=== PATIENT | male | born 1960 | race Caucasian/White ===

== ENCOUNTER 2017-05-08 07:40 | Day surgery (SDC) | payer OTHER ==
[~2017-05-08] VITALS: Ht 177.8 cm; Wt 89.4 kg
[~2017-05-08 07:40] MED LIST: ADV250INH INH; CYCL10TA PO; CYMB1CAP5 PO; GABA600T PO; LIPI20TA PO; OXYC1TAB23 PO; PROAAER10 INH; STOO100C PO
[2017-05-08] MEDS ORDERED: NS 1,000 ML IV ONE (07:45)
[2017-05-08] MEDS ORDERED: LIDOCAINE 2% INJ 100 MG/5 ML SDV (FOR ANES.) As Ordered ONE (09:40)
[2017-05-08] MEDS ORDERED: PROPOFOL 500 MG/50 ML VIAL As Ordered ONE (09:40)
--- NOTE | 2017-05-08 09:53 | ROOR ---
Patient Name: Karson Sierra Procedure Date: 05/08/2017 9:36 AM Date of : 1960 Age: 57 Room: [facility] Gender: Male Note Status: Finalized Procedure: Upper Endoscopy + Biopsies Indications: Follow-up of Pierce's esophagus Providers: Yovani Oliveira MD Referring MD: JUNE WATKINS MD Requesting Provider: Medicines: Monitored Anesthesia Care Complications: No immediate complications. Procedure: Pre-Anesthesia Assessment: - The heart rate, respiratory rate, oxygen saturations, blood pressure, adequacy of pulmonary ventilation, and response to care were monitored throughout the procedure. The Endoscope was introduced through the mouth, and advanced to the second part of duodenum. The upper GI endoscopy was accomplished without difficulty. The patient tolerated the procedure well. Findings: The Z-line was irregular and was found 35 cm from the incisors. Multiple biopsies were obtained with cold forceps for evaluation to rule out Pierce's Esophagus randomly at the gastroesophageal junction. Evidence of a Rohit fundoplication was found in the distal esophagus. The wrap appeared intact. This was traversed. No other significant abnormalities were identified in a careful examination of the stomach. The exam of the duodenum was otherwise normal. Impression: - Z-line irregular, 35 cm from the incisors. - A Rohit fundoplication was found. The wrap appears intact. - Multiple biopsies were obtained at the gastroesophageal junction. - The examination was otherwise normal. Recommendation: - Patient has a contact number available for emergencies. The signs and symptoms of potential delayed complications were discussed with the patient. Return to normal activities tomorrow. Written discharge instructions were provided to the patient. - High fiber diet. - Discharge patient to home. - Follow an antireflux regimen. - Continue present medications. - Await pathology results. - Telephone GI clinic for pathology results in 1 week. - Check Portal Online for Path Results.([email or web address]) - Return to referring physician. - The findings and recommendations were discussed with the patient's family. Yovani Oliveira MD Yovani Oliveira MD 05/08/2017 9:52:59 AM This report has been signed electronically. Number of Addenda: 0 Note Initiated On: 05/08/2017 9:36 AM Estimated Blood Loss: Estimated blood loss: none.
--- NOTE | 2017-05-08 10:10 | ROOR ---
Patient Name: Karson Sierra Procedure Date: 05/08/2017 9:36 AM Date of : 1960 Age: 57 Room: [facility] Gender: Male Note Status: Finalized Procedure: Total Colonoscopy to Cecum Indications: Screening for colorectal malignant neoplasm Providers: Yovani Oliveira MD Referring MD: JUNE WATKINS MD Requesting Provider: Medicines: Monitored Anesthesia Care Complications: No immediate complications. Procedure: Pre-Anesthesia Assessment: - The heart rate, respiratory rate, oxygen saturations, blood pressure, adequacy of pulmonary ventilation, and response to care were monitored throughout the procedure. The Colonoscope was introduced through the anus and advanced to the cecum, identified by appendiceal orifice and ileocecal valve. The colonoscopy was performed without difficulty. The patient tolerated the procedure well. The quality of the bowel preparation was fair. Findings: The perianal and digital rectal examinations were normal. Non-bleeding internal hemorrhoids were found during retroflexion. The hemorrhoids were small and Grade I (internal hemorrhoids that do not prolapse). No other significant abnormalities were identified in a careful examination of the remainder of the colon. The exam was otherwise without abnormality on direct and retroflexion views. Impression: - Non-bleeding internal hemorrhoids. - The examination was otherwise normal on direct and retroflexion views. - No specimens collected. - The exam was otherwise normal to the cecum. Recommendation: - Patient has a contact number available for emergencies. The signs and symptoms of potential delayed complications were discussed with the patient. Return to normal activities tomorrow. Written discharge instructions were provided to the patient. - Discharge patient to home. - Continue present medications. - Repeat colonoscopy in 10 years for screening purposes. - Return to referring physician. - The findings and recommendations were discussed with the patient's family. Yovani Oliveira MD Yovani Oliveira MD 05/08/2017 10:09:50 AM This report has been signed electronically. Number of Addenda: 0 Note Initiated On: 05/08/2017 9:36 AM Estimated Blood Loss: Estimated blood loss: none.
[2017-05-08 10:30] VITALS: BP 111/80
== END 2017-05-08 10:45 | disposition home or self-care (01) ==
LOC: M OPP 07:40
PROVIDERS: ATTEND Internal Medicine Gastroenterology
DX: Z12.11 Encounter for screening for malignant neoplasm of colon (principal); K64.0 First degree hemorrhoids; K22.70 Barrett's esophagus without dysplasia; K22.8 Other specified diseases of esophagus; Z98.890 Other specified postprocedural states; R13.10 Dysphagia, unspecified; K21.9 Gastro-esophageal reflux disease without esophagitis; K59.00 Constipation, unspecified; M19.90 Unspecified osteoarthritis, unspecified site; M54.9 Dorsalgia, unspecified; M25.60 Stiffness of unspecified joint, not elsewhere classified; F32.9 Major depressive disorder, single episode, unspecified; G62.9 Polyneuropathy, unspecified; J44.9 Chronic obstructive pulmonary disease, unspecified; R06.02 Shortness of breath; Z98.1 Arthrodesis status; F17.210 Nicotine dependence, cigarettes, uncomplicated; Z79.899 Other long term (current) drug therapy
CPT/HCPCS: 43239; 88305; G0121

== ENCOUNTER → 2017-06-30 | Outpatient (CLI) | payer MEDICARE, OTHER | LOC: M RAD 09:46 | DX: Z12.2 Encounter for screening for malignant neoplasm of respiratory organs (principal); J44.1 Chronic obstructive pulmonary disease with (acute) exacerbation; F17.200 Nicotine dependence, unspecified, uncomplicated | CPT/HCPCS: G0297 ==

== ENCOUNTER → 2018-09-26 | Outpatient (CLI) | payer MEDICARE, OTHER ==
[~2018-09-26] MED LIST changes: -GABA600T PO; +GABA600T4 PO
--- NOTE | 2018-09-26 11:52 | REP ---
Low-dose lung screening chest CT: Comparison is 06/30/2017. On the comparison study there was an 8 mm ground-glass nodule in the superior segment of the right lower lobe. This nodule is no longer present on the current study. It may represent a small focal zone of atelectasis previously. The calcified granuloma posteriorly in the right upper lobe is unchanged. There is a fibro linear parenchymal scar adjacent to the granuloma, unchanged. There are no other nodules or masses. There are no infiltrates or pleural effusions. Impression: The previous right lower lobe ground-glass nodule has resolved, likely transient atelectasis. Category one low-dose lung screening CT. The probability of malignancy is less than 1%. Depending on risk factors, annual low-dose lung screening chest CT is recommended for follow up. Electronically Signed by Surinder Sahni MD 09/26/2018 11:44 A
== END ==
LOC: M RAD 10:29
PROVIDERS: ATTEND Family Medicine
DX: Z12.2 Encounter for screening for malignant neoplasm of respiratory organs (principal); J44.9 Chronic obstructive pulmonary disease, unspecified; F17.210 Nicotine dependence, cigarettes, uncomplicated; J84.10 Pulmonary fibrosis, unspecified

== ENCOUNTER → 2019-04-26 | Outpatient (REF) | payer MEDICARE, OTHER ==
[~2019-04-26] MED LIST changes: +MM S100C PO; -STOO100C PO
[2019-04-26 17:28] LABS: HEMATOCRIT 46.8 % (42.0-52.0); HEMOGLOBIN 15.6 g/dl (13.5-17.5); MEAN CORPUSCULAR HGB CONC 33.3 g/dl (32.0-36.5); MEAN CORPUSCULAR VOLUME 108.1 fl (80.0-96.0); PLATELET COUNT, AUTOMATED 279 10^3/uL (150-450); RED BLOOD COUNT 4.33 10^6/uL (4.30-6.10); WHITE BLOOD COUNT 9.5 10^3/uL (4.0-10.0)
[2019-04-26 17:36] LABS: ALBUMIN 3.6 GM/DL (3.2-5.2); ALT/SGPT 35 U/L (12-78); BILIRUBIN,TOTAL 0.4 MG/DL (0.2-1.0); BLOOD UREA NITROGEN 16 MG/DL (7-18); CALCIUM LEVEL 8.7 MG/DL (8.8-10.2); CARBON DIOXIDE LEVEL 29 MEQ/L (21-32); CHLORIDE LEVEL 106 MEQ/L (98-107); CREATININE FOR GFR 0.99 MG/DL (0.70-1.30); GLOMERULAR FILTRATION RATE > 60.0 (>49); GLUCOSE, FASTING 104 MG/DL (70-100); POTASSIUM SERUM 4.2 MEQ/L (3.5-5.1); SODIUM LEVEL 140 MEQ/L (136-145)
== END ==
LOC: M LAB REF 16:17
PROVIDERS: ATTEND Surgery
DX: T14.8XXA Other injury of unspecified body region, initial encounter (principal); I87.311 Chronic venous hypertension (idiopathic) with ulcer of right lower extremity
CPT/HCPCS: 11042; 80053; 83036; 85027; G0463

== ENCOUNTER → 2019-05-09 | Outpatient (CLI) | payer MEDICARE, OTHER ==
[~2019-05-09] MED LIST changes: +ISOVUE-370 76% 100ML VIAL (Q9967) As Ordered ONE
--- NOTE | 2019-05-09 11:05 | REP ---
CT angiography of the abdomen, pelvis and bilateral lower extremity runoff arteries with IV contrast: History: Chronic venous hypertension with ulcer right lower extremity. CT contrast dose: 100 mL of intravenous Isovue 370. Technique: Helical scanning is acquired. Coronal and sagittal MPR images are generated. Maximal intensity projection images are generated and surface rendered 3-D images are generated and viewed in a rotational format. CT angiographic findings: The suprarenal abdominal aorta is unremarkable. Celiac and superior mesenteric axes are patent. The inferior mesenteric artery origin is unremarkable as well. Singular, non-stenotic bilateral renal arteries are observed. The left kidney shows significant atrophy. The infrarenal abdominal aorta shows mild atherosclerotic and calcific plaquing. No stenosis is seen. There is some spray artifact from fusion hardware in the lumbar spine. The common iliac artery calcification is noted bilaterally. There is a high-grade focal stenosis of the right common iliac artery at its bifurcation. No high-grade stenosis is noted on the left. The internal iliac artery is patent on the right. There is internal iliac artery occlusion on the left. The distal internal iliac artery on the left is reconstituted. The right external iliac artery is somewhat smaller than its left-sided counterpart. There is a high-grade focal stenosis at the origin of the proximal superficial femoral artery on the right approximately 90%. There is minimal plaquing in the mid SFAs bilaterally but no other focal stenosis is seen. Popliteal arteries are of good caliber. Three-vessel calf runoff is observed bilaterally to the distal calf. Impression: 1. High-grade focal stenosis of the distal common iliac artery on the right, approximately 80%. 2. High-grade focal stenosis of the proximal superficial femoral artery origin on the right, approximate 90%. 3. Left internal iliac artery occlusion. 4. Left renal atrophy. 5. Status post lumbosacral spine fusion. Electronically Signed by Raul Hua MD 05/09/2019 11:34 A
== END ==
LOC: M RAD 08:12
PROVIDERS: ATTEND Surgery
DX: I70.203 Unspecified atherosclerosis of native arteries of extremities, bilateral legs (principal); M43.27 Fusion of spine, lumbosacral region; N26.1 Atrophy of kidney (terminal); I87.311 Chronic venous hypertension (idiopathic) with ulcer of right lower extremity
CPT/HCPCS: 75635; Q9967

== ENCOUNTER → 2019-05-27 | Outpatient (CLI) | payer MEDICARE, OTHER ==
[~2019-05-27] MED LIST changes: -ISOVUE-370 76% 100ML VIAL (Q9967) As Ordered ONE
[2019-05-27 18:58] LABS: HEMATOCRIT 47.9 % (42.0-52.0); HEMOGLOBIN 15.7 g/dl (13.5-17.5); MEAN CORPUSCULAR HGB CONC 32.8 g/dl (32.0-36.5); MEAN CORPUSCULAR VOLUME 103.7 fl (80.0-96.0); PLATELET COUNT, AUTOMATED 327 10^3/uL (150-450); RED BLOOD COUNT 4.62 10^6/uL (4.30-6.10); WHITE BLOOD COUNT 9.8 10^3/uL (4.0-10.0)
[2019-05-27 19:15] LABS: BLOOD UREA NITROGEN 11 MG/DL (7-18); CARBON DIOXIDE LEVEL 30 MEQ/L (21-32); CHLORIDE LEVEL 103 MEQ/L (98-107); GLOMERULAR FILTRATION RATE > 60.0 (>49); GLUCOSE, FASTING 95 MG/DL (70-100); POTASSIUM SERUM 4.1 MEQ/L (3.5-5.1); SODIUM LEVEL 140 MEQ/L (136-145)
== END ==
LOC: M LAB 17:24
PROVIDERS: ATTEND Surgery Vascular Surgery
DX: I70.213 Atherosclerosis of native arteries of extremities with intermittent claudication, bilateral legs (principal)

== ENCOUNTER → 2019-06-13 | Outpatient (CLI) | payer MEDICARE, OTHER ==
[~2019-06-13] MED LIST changes: +ACETAMINOPHEN TAB 650MG DOSE (2X325MG) PO SCH; +CLOP75TA2 PO; +CLOPIDOGREL 75 MG TAB As Ordered ONE; +CLOPIDOGREL 75 MG TAB PO ONE; +HEPARIN 1,000 UNITS/ML 10ML VIAL (FOR RADIOLOGY& DIALYSIS ONLY) As Ordered ONE; +ISOVUE-300 61% 50ML VIAL (Q9967) As Ordered ONE; +LIDOCAINE 1% MDV 20ML VIAL As Ordered ONE; +MIDAZOLAM INJ 2 MG/2 ML VIAL (J2250) As Ordered ONE; +NS 1,000 ML IV SCH; +fentaNYL 100 MCG/2 ML INJECTION (J3010) As Ordered ONE
--- NOTE | 2019-06-13 09:47 | ROOPDOC ---
[facility] Report Of Operation Report of Operation DATE OF PROCEDURE: 06/13/19 PREPROCEDURE DIAGNOSES: Atherosclerosis the [place]qualmie vessels claudication and nonhealing wounds right lower extremity POSTPROCEDURE DIAGNOSES: Same PROCEDURE: 1. Ultrasound-guided access left common femoral artery 2. Aortoiliofemoral arteriogram, right lower extremity arteriogram with runoff from selection of right common femoral and superficial femoral arteries 3. Angioplasty right common iliac artery with 8 x 40 Clearwater balloon 4. Angioplasty right superficial femoral artery with 5 x 40 Clearwater balloon 5. Stenting proximal right superficial femoral artery with 7 x 40 Innova stent and 7 x 40 drug-eluting stent 6. Stenting distal common iliac artery and proximal external iliac artery with 10 x 57 express balloon expandable stent 7. Completion arteriograms 8. Mynx closure left common femoral artery SURGEON: Tamia Moore MD ANESTHESIA: Local anesthesia 7 mL lidocaine. Moderate intravenous conscious sedation was supervised by Dr. Moore. The patient was independent only monitored by a registered nurse assigned to the Department of radiology using automated blood pressure, EKG, and pulse oximetry. The detailed sedation record is permanently stored in the hospital information system. The following is the brief sedation record: Start time 07:47, stop time 09:22, Versed 1 mg IV, fentanyl 50 g IV, heparin 5000 units IV. CONTRAST: 79 mL Isovue-300 INDICATION FOR PROCEDURE: This is a very pleasant 59-year-old patient with atherosclerosis the [place]qualmie vessels and right lower extremity claudication and nonhealing wound of the right foot. Risks benefits and alternatives to an arteriogram and potential intervention were explained to the patient knee was ag reeable to proceed. Informed consent was obtained. INTERPRETATION: 1. The aorta is widely patent, and there is widely patent inflow through the left common iliac, hypogastric common external iliac artery. On the right, the common iliac artery is ectatic but patent proximally, but then just before the bifurcation into the hypogastric in the external iliac artery there is an approximately 95% stenosis, with mild poststenotic dilatation in the external iliac artery. The runoff through the rest of the external iliac artery into the common femoral arteries widely patent. 2. The right common femoral artery and profunda are widely patent but there is a near total occlusion at the origin of the SFA with trickle flow. There is some poststenotic dilatation in the rest of the superficial femoral artery throughout the thigh is widely patent and runs often to widely patent popliteal artery with 3 vessel runoff to the foot. 3. After angioplasty of the right common iliac artery, there was almost no improvement in flow. After stenting with a 10 x 57 express stent there was widely patent flow with still some mild noted ectasia proximal to the stent but not flow-limiting. 4. After angioplasty of the proximal right superficial femoral artery, there was minimal improvement. After the initial 7 x 40 Innova stent we still had a significant stenosis. We place a stent slightly distal to try to prevent coveri ng any of the origin of the profunda, but we did in fact have to place a more proximal stent, and we chose a drug-eluting stent to help maintain patency. We did partially cover the origin of the profunda, but there was still widely patent inflow through to the profunda. After post dilation, there was a marked improvement in flow through the right SFA origin with less than 20% residual stenosis. 5. Completion arteriogram showed that there was intact distal flow with no embolization. We noted no extravasation or dissections. REPORT OF OPERATION: Patient was brought to the angiographic suite in stable condition. His bilateral groins were prepped and draped in a sterile fashion. A timeout was performed. Local anesthesia was administered to the skin and subcutaneous tissue over the left common femoral artery. A microneedle was used to access the artery under ultrasound guidance and a wire was passed through this access into the central system. The needle was removed and a micro-sheath was placed. Through this access the Glidewire was advanced into the aorta under fluoroscopic guidance and the sheath was exchanged for 6 Andorran sheath and f lushed with saline. We then performed and aortoiliofemoral arteriogram with an Omni flushed catheter, please interpretation above. We went up and over the bifurcation with Omni flushed catheter and the Glidewire. It took a bit of time to cross through the severe stenosis in the common iliac artery, but we were eventually able to navigate through. It then took another 15 minutes to navigate into the origin of the superficial femoral artery, but we were eventually able to navigate the wire to the distal SFA. Over the wire, we angioplasty the stenosis in the common iliac artery with an 8 x 40 Clearwater balloon, and then we exchanged the balloon for a 5 x 40 balloon angioplasty across the origin of the SFA. Arteriogram showed minimal improvement in either area. Next, we deployed a 7 x 40 Innova stent, and noted still some stenosis proximal to the stent that we could only treat by covering part of the origin of the profunda. It was flow- limiting, so we selected a 7 x 40 drug-eluting stent and deployed this and post dilated with the 8 x 40 Clearwater balloon. Following this there was widely patent flow through the SFA. We then exchanged for 6 Andorran sheath over the Glidewire for a 7 Andorran sheath and flushed the sheath with saline, and then selected a 10 x 57 stent to deployed across the common iliac artery and proximal external iliac artery. Following this, there was still a little ectasia proximal to the stent but widely patent flow with no flow limitation. Distal runoff was intact and no embolization extravasation or dissections were noted. Mynx closure device was deployed in the left common femoral artery with good hemostasis. Pressure was held for 10 minutes and the patient was taken to recovery in stable condition. He tolerated the sedation and the procedure well. There were no complications. ESTIMATED BLOOD LOSS: Approximately 5 mL. COMPLICATIONS: None. PLAN: The patient can resume all home medications and he will need to be on Plavix for 60 days process procedure due to stent placement. He should continue to try to quit smoking. We will see him back in a week to check his left groin access site and his perfusion. TAMIA MOORE MD Jun 13, 2019 09:47
[2019-06-13 13:30] VITALS: BP 138/74
== END ==
LOC: M IRPRO 06:30
PROVIDERS: ATTEND Surgery Vascular Surgery
DX: I70.211 Atherosclerosis of native arteries of extremities with intermittent claudication, right leg (principal); I70.239 Atherosclerosis of native arteries of right leg with ulceration of unspecified site
CPT/HCPCS: 37221; 37226; 75710; 99152; 99153; C1725; C1760; C1769; C1874; C1876; C1887; C1894; J2250; J3010; Q9967

== ENCOUNTER → 2019-07-24 | Outpatient (CLI) | payer MEDICARE, OTHER ==
[~2019-07-24] MED LIST changes: -ACETAMINOPHEN TAB 650MG DOSE (2X325MG) PO SCH; -CLOPIDOGREL 75 MG TAB As Ordered ONE; -CLOPIDOGREL 75 MG TAB PO ONE; -HEPARIN 1,000 UNITS/ML 10ML VIAL (FOR RADIOLOGY& DIALYSIS ONLY) As Ordered ONE; -ISOVUE-300 61% 50ML VIAL (Q9967) As Ordered ONE; -LIDOCAINE 1% MDV 20ML VIAL As Ordered ONE; -MIDAZOLAM INJ 2 MG/2 ML VIAL (J2250) As Ordered ONE; -NS 1,000 ML IV SCH; -fentaNYL 100 MCG/2 ML INJECTION (J3010) As Ordered ONE
--- NOTE | 2019-07-24 10:57 | REP ---
Bilateral lower extremity Doppler arterial ultrasound: Right lower extremity: Brachial peak systole: 150 mmHg. Dorsalis pedis peak systole: 145 mmHg. ENGINE OILER peak systole: 160 mmHg FEDERICA: 1.06 Peak Systolic Phasicity Velocity FOREIGN EXCHANGE POSITION CLERK 106 triphasic Profunda 76 biphasic SFA prox 88/93 triphasic SFA mid 87 triphasic SFA dist 61 bi-triphasic Pop 46 triphasic JUANITO prox 48 biphasic Tib/P tr 57 triphasic ENGINE OILER pr 58 triphasic ENGINE OILER dst 36 biphasic JUANITO dst 55 triphasic t The left lower extremity: Brachial peak systole: 150 mmHg. Dorsalis pedis peak systole: 145 mmHg. ENGINE OILER peak systole: 130 mmHg. FEDERICA: 0.97 Peak Systolic Phasicity Velocity FOREIGN EXCHANGE POSITION CLERK 70 C triphasic Profunda 55 biphasic SFA prox 68 triphasic SFA mid 61 triphasic SFA dist 35 biphasic Pop the 44 triphasic JUANITO prox 44 triphasic Tib/P tr 34 biphasic ENGINE OILER pr 64 triphasic ENGINE OILER dst 62 triphasic JUANITO dst 85 triphasic No significant stenosis is identified on the right or the left. There is a patent stent in the right proximal SFA. The flow in the left FOREIGN EXCHANGE POSITION CLERK is mildly decreased, however, the waveform is triphasic. Electronically Signed by Surinder Sahni MD 07/24/2019 10:47 A
== END ==
LOC: M RAD 08:45
PROVIDERS: ATTEND Physician Assistant
DX: I70.203 Unspecified atherosclerosis of native arteries of extremities, bilateral legs (principal); Z95.820 Peripheral vascular angioplasty status with implants and grafts; F17.210 Nicotine dependence, cigarettes, uncomplicated

== ENCOUNTER → 2019-09-17 | Outpatient (CLI) | payer MEDICARE, OTHER ==
[~2019-09-17] MED LIST changes: +CONRAY-43 43% 50ML VIAL (Q9960) As Ordered ONE; +PROHANCE 279.3MG/ML 5ML VIAL (A9576) As Ordered ONE
--- NOTE | 2019-09-17 09:40 | REP ---
MR ARTHROGRAM RIGHT HIP: TECHNIQUE: Coronal T1, STIR through the pelvis, post arthrogram axial T1 fat sat, T2 fat sat, coronal T1 fat sat, T2 fat sat, sagittal T1 fat sat, axial oblique T1 fat sat right hip. There is no bone marrow edema or occult fracture. There is no evidence of avascular necrosis. There is a tear of the anterior labrum. This extends into the anterior aspect of the superior labrum. There is no paralabral cyst. There is mild chondromalacia. There is a small subcentimeter subchondral cyst in the central acetabulum. There is increased signal in the soft tissues along the greater trochanter compatible with mild greater trochanteric tendinobursitis. This is also seen on the left side. No other abnormal signal is seen in the surrounding soft tissues. The visualized intrapelvic structures are unremarkable. IMPRESSION: Anterior labral tear which extends into the anterior aspect of the superior labrum. Mild chondromalacia with a subchondral cyst centrally in the acetabulum. There is mild bilateral greater trochanteric tendinobursitis. Electronically Signed by Surinder Lobo MD 09/17/2019 10:29 A
--- NOTE | 2019-09-17 10:32 | REP ---
Reason For Exam/Comment: Unilateral primary osteoarthritis of the right hip Procedure: Right hip MRI arthrogram The procedure was performed by AMBERLY Dan, under the direct supervision of Dr. Lobo. The benefits and risks including but not limited to pain, infection, bleeding and anaphylaxis were explained to the patient and informed consent was obtained both verbally and written. Directly prior to the start of the procedure, a formal timeout was completed in the procedure room. Technique: The right femoral neck joint space was localized using fluoroscopic guidance. The skin was prepped and draped in the usual sterile fashion. 4 mL of 1% lidocaine 10 mg/ml was used as a local anesthetic. Using fluoroscopic guidance a 22-gauge spinal needle was inserted and advanced to the right femoral neck joint space. 1 mL of Conray 43 was injected to verify needle placement. 12 mL of a solution containing 20 ml of sterile saline and a 0.15 ml of ProHance was injected into the joint. The needle was removed and the patient was taken MRI for post procedural imaging. The patient tolerated the procedure well and there were no immediate complications. 0.1 minutes of fluoroscopy time was utilized for this procedure. Some fluoroscopic images are performed with last image hold technology. These images require no additional radiation. Reviewed by AMBERLY Michaud 09/17/2019 09:25 A Electronically Signed by Surinder Lobo MD 09/17/2019 10:24 A
== END ==
LOC: M RADPRO 06:17
PROVIDERS: ATTEND Orthopaedic Surgery
DX: M94.251 Chondromalacia, right hip (principal); M25.751 Osteophyte, right hip; M24.159 Other articular cartilage disorders, unspecified hip
CPT/HCPCS: 27093; 73723; 77002; A9576; Q9960

== ENCOUNTER → 2019-11-23 | Outpatient (CLI) | payer MEDICARE, OTHER ==
[~2019-11-23] MED LIST changes: +CHAN1PAK13 PO; -CONRAY-43 43% 50ML VIAL (Q9960) As Ordered ONE; +CYCL-707 PO; -CYCL10TA PO; +FOLI1TAB11 PO; +MULT1TAB74 PO; -PROHANCE 279.3MG/ML 5ML VIAL (A9576) As Ordered ONE
== END ==
LOC: M LABSMTC 08:57
PROVIDERS: ATTEND Anesthesiology
DX: Z01.818 Encounter for other preprocedural examination (principal); Z11.59 Encounter for screening for other viral diseases
CPT/HCPCS: C9803; U0003

== ENCOUNTER 2019-11-26 10:37 | Day surgery (SDC) | payer MEDICARE, OTHER ==
[~2019-11-26] VITALS: Ht 177.8 cm; Wt 108.0 kg
[~2019-11-26 10:37] MED LIST changes: +NS 1,000 ML IV SCH
[2019-11-26] MEDS ORDERED: fentaNYL 100 MCG/2 ML INJECTION (J3010) As Ordered ONE (11:35)
[2019-11-26] MEDS ORDERED: propofoL 200 MG/20 ML VIAL As Ordered ONE (11:35)
[2019-11-26] MEDS ORDERED: LIDOCAINE 2% 100MG/5ML SDV (FOR ANES.) As Ordered ONE (11:35)
--- NOTE | 2019-11-26 11:56 | ROOR ---
Patient Name: Karson Sierra Procedure Date: 11/26/2019 11:36 AM Date of : 1960 Age: 59 Room: [facility] Gender: Male Note Status: Finalized Procedure: Upper Endoscopy + Biopsies Indications: Follow-up of Pierce's esophagus Providers: Yovani Oliveria MD Referring MD: JUNE WATKINS MD Requesting Provider: Medicines: Monitored Anesthesia Care Complications: No immediate complications. Procedure: Pre-Anesthesia Assessment: - The heart rate, respiratory rate, oxygen saturations, blood pressure, adequacy of pulmonary ventilation, and response to care were monitored throughout the procedure. The Endoscope was introduced through the mouth, and advanced to the second part of duodenum. The upper GI endoscopy was accomplished without difficulty. The patient tolerated the procedure well. Findings: The Z-line was irregular and was found 40 cm from the incisors. Multiple biopsies were obtained with cold forceps for evaluation to rule out Pierce's Esophagus randomly at the gastroesophageal junction. A small hiatal hernia was present. No other significant abnormalities were identified in a careful examination of the stomach. The exam of the duodenum was otherwise normal. Impression: - Z-line irregular, 40 cm from the incisors. - Small hiatal hernia. - Multiple biopsies were obtained at the gastroesophageal junction. - The examination was otherwise normal. Recommendation: - Patient has a contact number available for emergencies. The signs and symptoms of potential delayed complications were discussed with the patient. Return to normal activities tomorrow. Written discharge instructions were provided to the patient. - High fiber diet. - Discharge patient to home. - Follow an antireflux regimen. - Continue present medications. - Await pathology results. - Telephone GI clinic for pathology results in 1 week. - Return to referring physician. - The findings and recommendations were discussed with the patient's family. Yovani Oliveira MD Yovani Oliveira MD 11/26/2019 11:55:50 AM Electronically signed by Yovani Oliveira MD Number of Addenda: 0 Note Initiated On: 11/26/2019 11:36 AM Estimated Blood Loss: Estimated blood loss: none.
[2019-11-26 12:22] VITALS: BP 145/68
== END 2019-11-26 12:27 | disposition home or self-care (01) ==
LOC: M OPP 10:37
PROVIDERS: ATTEND Internal Medicine Gastroenterology
DX: K22.8 Other specified diseases of esophagus (principal); K44.9 Diaphragmatic hernia without obstruction or gangrene; K22.70 Barrett's esophagus without dysplasia; K21.9 Gastro-esophageal reflux disease without esophagitis; F17.210 Nicotine dependence, cigarettes, uncomplicated; Z79.891 Long term (current) use of opiate analgesic; Z79.899 Other long term (current) drug therapy
CPT/HCPCS: 43239; 88305; J3010

== ENCOUNTER → 2020-03-19 | Outpatient (CLI) | payer MEDICARE, OTHER ==
[~2020-03-19] MED LIST changes: -NS 1,000 ML IV SCH
--- NOTE | 2020-03-19 09:12 | REPVR ---
PROCEDURE INFORMATION: Exam: CT Lumbar Spine Without Contrast Exam date and time: 03/19/2020 8:46 AM Age: 60 years old Clinical indication: Other: Radiculopathy; Prior surgery; Surgery date: 6+ months; Additional info: Radiculopathy, x-ray also TECHNIQUE: Imaging protocol: Computed tomography images of the lumbar spine without contrast. Radiation optimization: All CT scans at this facility use at least one of these dose optimization techniques: automated exposure control; mA and/or kV adjustment per patient size (includes targeted exams where dose is matched to clinical indication); or iterative reconstruction. COMPARISON: SPINE LUMBOSACRAL PARTIAL 08/18/2015 10:06 AM FINDINGS: Vertebrae: Examination reveals the patient to be status post posterior spinal fusion with laminectomy at L5-S1 levels. There is persistent 1 cm grade 2 spondylolisthesis of L5 over S1.Metallic beam hardening artifact slightly limits evaluation in this region. Otherwise,The remainder of the lumbar vertebral bodies are normal in height and alignment.No acute fracture or dislocation is seen. L1-L2: No significant disc protrusion. No severe spinal canal stenosis. No significant neural foraminal narrowing. L2-L3: No significant disc protrusion. No spinal canal stenosis. No neural foraminal narrowing. L3-L4: No significant disc protrusion. No severe spinal canal stenosis. No significant neural foraminal narrowing. L4-L5: There is a mild diffuse posterior bulge causing mild effacement of the thecal sac.The facet joints demonstrate moderate degenerative narrowing and sclerosis. There is no evidence of spinal canal narrowing. There is mild bilateral foraminal stenosis. L5-S1: Posterior spinal fusion and laminectomy.Metallic beam hardening artifact slightly limits evaluation in this region. Mild diffuse posterior bulge. Diffuse diffuse posterior spurring.Stable changes of laminectomy is identified.The facet joints demonstrate marked degenerative narrowing and sclerosis. There is severe bilateral foraminal stenosis. Epidural space: There is no evidence of epidural masses or hemorrhage. Soft tissues: There are no soft tissue masses or fluid collections. The prevertebral soft tissues appear normal. IMPRESSION: 1. Examination reveals the patient to be status post posterior spinal fusion with laminectomy at L5-S1 levels. There is persistent 1 cm grade 2 spondylolisthesis of L5 over S1.Metallic beam hardening artifact slightly limits evaluation in this region. 2. Otherwise,The remainder of the lumbar vertebral bodies are normal in height and alignment.No acute fracture or dislocation is seen. 3. Posterior spinal fusion and laminectomy is noted at L5-S1 level..Metallic beam hardening artifact slightly limits evaluation in this region. Mild diffuse posterior bulge. Diffuse diffuse posterior spurring.Stable changes of laminectomy is identified.The facet joints demonstrate marked degenerative narrowing and sclerosis. There is severe bilateral foraminal stenosis. Electronically signed by: Bill Rahman On 03/19/2020 09:11:38 AM
--- NOTE | 2020-03-25 11:08 | REP ---
LUMBOSACRAL SPINE SERIES: 7-VIEWS INCLUDING BENDING LATERAL PROJECTION IMAGES COMPARISON: Radiographs 08/18/2015. CT images lumbar spine from earlier today. FINDINGS: There are clips in the right upper quadrant. Transpedicle screws are seen in place with interconnecting fusion rods bilaterally at L5 and S1. There is a stabilized 10 mm grade 1 to 2 L5-S1 spondylolisthesis, which appears unchanged from the 2016 prior study. There is mild narrowing and spur formation at L4-5 and mild discogenic spurring is seen at L2-3 and L1-2. Lumbar vertebral body heights are preserved. Flexion extension lateral films show no subluxation or instability. Vascular calcification is noted and there is a right iliac artery stent noted in place. Pedicles and posterior elements are intact. Psoas margins are symmetric. Sacrum and sacroiliac (SI) joints are unremarkable. IMPRESSION: Grade one to two 10 mm stable L5-S1 spondylolisthesis with transpedicle screw interconnecting zurdo dorsal fixation. MTDD
== END ==
LOC: M RAD 08:29
PROVIDERS: ATTEND Neurological Surgery
DX: M47.26 Other spondylosis with radiculopathy, lumbar region (principal); M43.17 Spondylolisthesis, lumbosacral region; Z98.1 Arthrodesis status

== ENCOUNTER → 2020-04-10 | Outpatient (CLI) | payer MEDICARE, OTHER ==
--- NOTE | 2020-04-10 11:25 | REP ---
INDICATION: ATHSCL AKIAK ARTERIES COMPARISON: 07/24/2019. TECHNIQUE: Real time lobo scale and Duplex Doppler evaluation of the bilateral lower extremity arterial vasculature using linear high frequency transducer. FINDINGS: Lobo scale and duplex doppler images demonstrate mild amounts of atheromatous plaquing with areas of minimal narrowing but no focal stenosis identified. Doppler interrogation demonstrates normal arterial wave forms and velocities bilaterally. There are diffuse triphasic waveforms bilaterally. [place]: Right 1.18, left 1.15. Stent at the origin of the right superficial femoral artery is patent. Peak systolic velocities (cm/sec) Common femoral artery: Right 114; Left 141 Profunda femoris: Right 125; Left 110 SFA (proximal): Right 169; Left 118 SFA (mid): Right 106; Left 98 SFA (distal): Right 77; Left 73 Popliteal artery: Right 66; Left 76 JUANITO (prox.): Right 82; Left 77 Tibioperoneal trunk: Right 66; Left 58 RIDES SUPERVISOR (prox.): Right 77; Left 69 RIDES SUPERVISOR (distal): Right 83; Left 71 JUANITO (distal): Right 81; Left 102 IMPRESSION: Atheromatous changes with areas of narrowing but no obvious focal occlusion or stenosis. <Electronically signed by Surinder Lobo > 04/10/20 1121
== END ==
LOC: M RAD 10:08
PROVIDERS: ATTEND Surgery Vascular Surgery
DX: I70.291 Other atherosclerosis of native arteries of extremities, right leg (principal); I70.221 Atherosclerosis of native arteries of extremities with rest pain, right leg

== ENCOUNTER → 2020-04-28 | Outpatient (CLI) | payer MEDICARE, OTHER ==
[~2020-04-28] MED LIST changes: +PROHANCE 279.3MG/ML 15ML VIAL As Ordered ONE; +PROHANCE 279.3MG/ML 5ML VIAL As Ordered ONE
--- NOTE | 2020-04-28 19:51 | REPVR ---
PROCEDURE INFORMATION: Exam: MR Lumbar Spine Without and With Contrast. Exam date and time: 04/28/2020 6:49 PM Age: 60 years old Clinical indication: Low back pain; Prior surgery; Surgery date: 6+ months; Additional info: Lbp TECHNIQUE: Imaging protocol: Multiplanar magnetic resonance images of the lumbar spine without and with intravenous contrast. Contrast material: PROHANCE; Contrast volume: 20 ml; Contrast route: INTRAVENOUS (IV); COMPARISON: CT Spine, lumbar w/o contrast 03/19/2020 8:49 AM FINDINGS: Vertebrae: T1 weighted images demonstrate mottled decreased signal throughout the vertebrae, findings which can be seen in association with chronic anemia or other myeloproliferative abnormality. This should be correlated with clinical evaluation. Spinal cord: Normal signal. No cord compression. L1-L2: No significant disc disease. No significant spinal canal stenosis. No neural foraminal stenosis. L2-L3: No significant disc disease. No significant spinal canal stenosis. No neural foraminal stenosis. L3-L4: No significant disc disease. No significant spinal canal stenosis. No neural foraminal stenosis. L4-L5: No significant disc disease. No significant spinal canal stenosis. No neural foraminal stenosis. L5-S1: Status post posterior interbody fusion at L5-S1 with a persistent grade 2 spot anterior spondylolisthesis of L5 on S1. Anatomy partially obscured by the presence of magnetic susceptibility artifact. Marked disc space narrowing L5-S1. Moderate to severe bilateral foraminal stenosis. No abnormal enhancement. Soft tissues: Normal postoperative change. Otherwise unremarkable. IMPRESSION: 1. Status post posterior interbody fusion at L5-S1 with a persistent grade 2 spot anterior spondylolisthesis of L5 on S1. Anatomy partially obscured by the presence of magnetic susceptibility artifact. Marked disc space narrowing L5-S1. Moderate to severe bilateral foraminal stenosis. 2. T1 weighted images demonstrate mottled decreased signal throughout the vertebrae, findings which can be seen in association with chronic anemia or other myeloproliferative abnormality. This should be correlated with clinical evaluation. Electronically signed by: Erik Payan On 04/28/2020 19:50:43 PM
== END ==
LOC: M RAD 16:46
PROVIDERS: ATTEND Family Medicine
DX: M54.5 Low back pain (principal)
CPT/HCPCS: 72158; A9576

== ENCOUNTER → 2020-05-04 | Outpatient (CLI) | payer MEDICARE, OTHER ==
[~2020-05-04] MED LIST changes: -PROHANCE 279.3MG/ML 15ML VIAL As Ordered ONE; -PROHANCE 279.3MG/ML 5ML VIAL As Ordered ONE
--- NOTE | 2020-05-04 19:02 | REPVR ---
PROCEDURE INFORMATION: Exam: MR Cervical Spine Without Contrast Exam date and time: 05/04/2020 6:04 PM Age: 60 years old Clinical indication: Other: Balance issues, assess for cord compression TECHNIQUE: Imaging protocol: Multiplanar magnetic resonance images of the cervical spine without contrast. COMPARISON: CR Spine,LS wBENDING MIN 6 VIEWS 03/19/2020 9:00 AM FINDINGS: Vertebrae: Unremarkable. Spinal cord: Normal signal. No cord compression. C2-C3: Uncovertebral hypertrophy. Severe left neural foraminal narrowing. No spinal canal stenosis. C3-C4: Uncovertebral hypertrophy. No spinal canal stenosis. Severe bilateral neural foraminal narrowing. C4-C5: . Uncovertebral hypertrophy. Moderate left neural foraminal narrowing. No spinal canal stenosis. C5-C6: No significant disc disease. No significant spinal stenosis. C6-C7: Disc bulge. There is left central and paracentral disc protrusion. The disc is effacing the ventral fecal thecal sac. Moderate spinal canal stenosis. Mild bilateral neural foraminal narrowing. C7-T1: No significant disc disease. No significant spinal stenosis. Vertebral arteries: Expected flow voids in the vertebral arteries. Soft tissues: Unremarkable. IMPRESSION: No acute abnormality. Multilevel uncovertebral hypertrophy with neural foraminal narrowing. Severe left neural foraminal narrowing at C2-C3, severe bilateral C3-C4, moderate left C4-C5, mild bilateral C6-C7. Moderate spinal canal stenosis at C6-C7. Electronically signed by: Horace Knight On 05/04/2020 19:02:26 PM
--- NOTE | 2020-05-04 19:05 | REPVR ---
PROCEDURE INFORMATION: Exam: MR Thoracic Spine Without Contrast Exam date and time: 05/04/2020 6:38 PM Age: 60 years old Clinical indication: Other: Balance issues, assess for cord compression TECHNIQUE: Imaging protocol: Multiplanar magnetic resonance images of the thoracic spine without intravenous contrast. COMPARISON: CR Spine,LS wBENDING MIN 6 VIEWS 03/19/2020 9:00 AM FINDINGS: Vertebrae: Unremarkable. Spinal cord: Normal signal. No cord compression. T1-T2: No significant disc disease. No significant spinal canal stenosis. T2-T3: No significant disc disease. No significant spinal canal stenosis. T3-T4: No significant disc disease. No significant spinal canal stenosis. T4-T5: No significant disc disease. No significant spinal canal stenosis. T5-T6: No significant disc disease. No significant spinal canal stenosis. T6-T7: No significant disc disease. No significant spinal canal stenosis. T7-T8: No significant disc disease. No significant spinal canal stenosis. T8-T9: No significant disc disease. No significant spinal canal stenosis. T9-T10: No significant disc disease. No significant spinal canal stenosis. T10-T11: No significant disc disease. No significant spinal canal stenosis. T11-T12: No significant disc disease. No significant spinal canal stenosis. Soft tissues: Unremarkable. IMPRESSION: Unremarkable spine. Electronically signed by: Horace Knight On 05/04/2020 19:05:31 PM
== END ==
LOC: M RAD 16:42
PROVIDERS: ATTEND Neurological Surgery
DX: G95.9 Disease of spinal cord, unspecified (principal); M48.02 Spinal stenosis, cervical region; M25.78 Osteophyte, vertebrae

== ENCOUNTER → 2020-08-19 | Outpatient (CLI) | payer MEDICARE, OTHER ==
--- NOTE | 2020-08-19 09:44 | REP ---
INDICATION: HTN COMPARISON: None None TECHNIQUE: Real time cornejo scale ultrasound examination using curved array transducer followed by color Doppler evaluation of the renal vasculature. FINDINGS: Right kidney is normal in contour, size, echogenicity, and reniform shape without hydronephrosis and measures 12.3 x 5.1 x 4.9 cm. The left kidney appears atrophic and measures 7.3 x 3.2 x 3.9 cm without hydronephrosis. COLOR DOPPLER EVALUATION . Peak aortic velocity: 73 centimeters/second RIGHT KIDNEY Renal arterial velocity: 124 centimeters/second Renal-aortic ratio: 1.7 Intrarenal resistive indices: 0.62-0.68 Intrarenal acceleration times: 0.030-0.038 LEFT KIDNEY Renal arterial velocity: 170 centimeters/second Renal-aortic ratio: 2.3 Intrarenal resistive indices: 0.61-0.69 Intrarenal acceleration times: 0.028-0.034 IMPRESSION: 1. Atrophic appearance of the left kidney.. 2. Doppler interegation without sonographic evidence for renal arterial stenosis. <Electronically signed by Imtiaz Smith > 08/19/20 [id number]
== END ==
LOC: M RAD 08:37
PROVIDERS: ATTEND Internal Medicine Cardiovascular Disease
DX: I10 Essential (primary) hypertension (principal)

== ENCOUNTER → 2020-08-20 | Outpatient (CLI) | payer MEDICARE, OTHER ==
--- NOTE | 2020-08-20 08:15 | PFTRPT ---
Height: 69.00 Inches Weight: 250.00 Lbs BSA: 2.27 Diagnosis: J44.9 DATE: 08/20/2020 ORDERING PHYSICIAN: Maico Gonzales MD Pre and post bronchodilator studies have excellent technical quality. Forced vital capacity is normal. FEV1 out of proportion. Obstructive index is therefore reduced. Expiratory limit of the flow-volume loop consistent with flow rate limitation. Only borderline bronchodilator response is identified. Total lung capacity mildly elevated. Residual volume does suggest a degree of air trapping. Diffusing capacity although reduced is borderline when it corrects for alveolar volume. Hemoglobin is acceptable at 12.9. Airway resistance and conductance are normal. IMPRESSION: At least moderate obstructive ventilatory impairment with underlying air trapping and mild diffusing capacity impairment. Borderline bronchodilator response. Please correlate clinically. MTDD
== END ==
LOC: M CARPUL 07:32
PROVIDERS: ATTEND Internal Medicine Pulmonary Disease
DX: J44.9 Chronic obstructive pulmonary disease, unspecified (principal)

== ENCOUNTER 2020-10-22 12:20 | Emergency (ER) | payer MEDICARE, OTHER ==
--- NOTE | 2020-10-22 12:58 | REP ---
INDICATION: DYSPNEA/COUGH. COMPARISON: None. TECHNIQUE: Single portable AP view of the chest was performed. FINDINGS: There is mild elevation of left hemidiaphragm. There is mild bibasilar fibro atelectatic change. No consolidating infiltrate is seen. The heart is normal in size. The mediastinal silhouette is unremarkable. IMPRESSION: No acute pulmonary disease.Mild bibasilar fibro atelectatic change. <Electronically signed by Surinder Lobo > 10/22/20 0513
[2020-10-22 13:35] LABS: BASO # 0.1 10^3/uL (0.0-0.2); BASO % 0.8 % (0.0-1.0); EOS # 0.6 10^3/uL (0.0-0.5); EOS % 7.4 % (0.0-3.0); HEMATOCRIT 41.8 % (42.0-52.0); HEMOGLOBIN 13.4 g/dl (13.5-17.5); LYMPH # 1.8 10^3/uL (1.5-5.0); LYMPH % 22.8 % (24.0-44.0); MEAN CORPUSCULAR HEMOGLOBIN 31.2 pg (27.0-33.0); MEAN CORPUSCULAR HGB CONC 32.1 g/dl (32.0-36.5); MEAN CORPUSCULAR VOLUME 97.2 fl (80.0-96.0); MONO # 0.7 10^3/uL (0.0-0.8); MONO % 8.5 % (2.0-8.0); NEUTROPHILS # 4.6 10^3/uL (1.5-8.5); NEUTROPHILS % 60.2 % (36.0-66.0); PLATELET COUNT, AUTOMATED 317 10^3/uL (150-450); WHITE BLOOD COUNT 7.7 10^3/uL (4.0-10.0)
[2020-10-22 14:56] VITALS: BP 113/63
--- NOTE | 2020-10-22 17:15 | ECGEPIP ---
[facility] - ED Test Date: 2020-10-22 Pat Name: ALISON STEVENSON Department: Room: - Gender: Male Rda: JERRI : 1960 Requested By: Jennifer Neves Order Number: [id number] Reading MD: Maico Henry Measurements Intervals [place] Rate: 69 P: 65 LA: 158 QRS: 18 QRSD: 78 T: 22 QT: 402 QTc: 430 Interpretive Statements Normal sinus rhythm Nonspecific T wave abnormality Low QRS complex voltage in the limb leads Comparison tracing not on file Electronically Signed on 10-22-2020 17:15:20 EDT by Maico Henry
== END 2020-10-22 15:01 | disposition home or self-care (01) ==
LOC: M ED 12:20 → EDBD 12:20 → M ED 15:01
DX: R53.81 Other malaise (principal); I10 Essential (primary) hypertension; J44.9 Chronic obstructive pulmonary disease, unspecified; E78.5 Hyperlipidemia, unspecified; K22.70 Barrett's esophagus without dysplasia; I73.9 Peripheral vascular disease, unspecified; Z87.891 Personal history of nicotine dependence; Z79.899 Other long term (current) drug therapy; Z79.51 Long term (current) use of inhaled steroids

== ENCOUNTER → 2020-10-27 | Outpatient (CLI) | payer MEDICARE, OTHER ==
--- NOTE | 2020-10-27 11:34 | REP ---
INDICATION: CKD 2, ATROPHY OF KIDNEY. COMPARISON: None. TECHNIQUE: Real-time sonographic evaluation of urinary bladder performed. FINDINGS: Bladder measures 12.1 x 8.9 x 56.8 cm for total volume of 478 cc. Postvoid residual is 99 cc. This is 21% of the original volume. No bladder wall mass or thickening is seen. No bladder calculus is seen. Ureteral jets are seen within the urinary bladder with Doppler color evaluation. IMPRESSION: Postvoid residual 21% as discussed above. Otherwise unremarkable bladder ultrasound. <Electronically signed by Surinder Lobo > 10/27/20 [id number]
== END ==
LOC: M RAD 10:23
PROVIDERS: ATTEND Internal Medicine Nephrology
DX: N18.2 Chronic kidney disease, stage 2 (mild) (principal); N26.1 Atrophy of kidney (terminal)

== ENCOUNTER → 2021-01-29 | Outpatient (REF) | payer MEDICARE, OTHER | LOC: M LAB REF 16:39 | PROVIDERS: ATTEND Internal Medicine Nephrology | DX: N18.2 Chronic kidney disease, stage 2 (mild) (principal) ==

== ENCOUNTER → 2021-05-10 | Outpatient (CLI) | payer MEDICARE, OTHER ==
--- NOTE | 2021-05-10 12:56 | REP ---
INDICATION: COPD. COMPARISON: Multiple the latest 09/26/2018 also low-dose screening CT of the lungs TECHNIQUE: Axial noncontrast images from the thoracic inlet to the upper abdomen using low-dose lung screening technique (LDCT). As per the protocol only lung window images was sent to the read station for interpretation. FINDINGS: There is a new 5 mm size nodule in the right lower lobe. There are stable emphysematous changes and chronic pleuroparenchymal scarring status quo. There are no additional new abnormal nodules, masses, or opacities. Grossly, the mediastinum and pulmonary swathi are unchanged. Grossly, the imaged upper abdomen and imaged osseous structures are unchanged. IMPRESSION: There is a new 5 mm size nodule in the right lower lobe. According to the revised Fleischner society criteria this represents category 3 lesion for which a six-month follow-up CT is recommended. <Electronically signed by Eber Mckeon > 05/10/21 [id number]
== END ==
LOC: M RAD 11:16
PROVIDERS: ATTEND Internal Medicine Pulmonary Disease
DX: Z12.2 Encounter for screening for malignant neoplasm of respiratory organs (principal); J44.9 Chronic obstructive pulmonary disease, unspecified; Z87.891 Personal history of nicotine dependence; R91.1 Solitary pulmonary nodule

== ENCOUNTER → 2021-07-02 | Outpatient (CLI) | payer MEDICARE, OTHER | LOC: M RAD 10:31 | PROVIDERS: ATTEND Physician Assistant | DX: R55 Syncope and collapse (principal) ==

== ENCOUNTER → 2021-08-03 | Outpatient (REF) | payer MEDICARE, OTHER | LOC: M LAB REF 16:57 | PROVIDERS: ATTEND Nurse Practitioner Family | DX: N18.2 Chronic kidney disease, stage 2 (mild) (principal) ==

== ENCOUNTER → 2021-11-05 | Outpatient (CLI) | payer MEDICARE, OTHER | LOC: M RAD 07:46 | PROVIDERS: ATTEND Internal Medicine Pulmonary Disease | DX: J43.1 Panlobular emphysema (principal); R91.8 Other nonspecific abnormal finding of lung field ==

== ENCOUNTER → 2022-02-09 | Outpatient (CLI) | payer MEDICARE, OTHER | LOC: M RAD 13:42 | PROVIDERS: ATTEND Physician Assistant | DX: I73.9 Peripheral vascular disease, unspecified (principal) ==

== ENCOUNTER → 2022-06-20 | Outpatient (CLI) | payer MEDICARE, OTHER ==
[~2022-06-20] MED LIST changes: +ASPI1CHW2 PO; +BACL10TA2 PO; +CARB25TA9 PO; +DOCU100C16 PO; +EZET10TA21 PO; +GABA-282 PO; +METF-838 PO; +MULTTAB61 PO; +PANT40TA29 PO; +PROA1AER2 IN; +ROSU20TA5 PO; +SENN-85 PO; +SPIR12.9 INH; +VARE1TAB2 PO
== END ==
LOC: M LABSMTC 09:13
PROVIDERS: ATTEND Anesthesiology
DX: Z01.812 Encounter for preprocedural laboratory examination (principal); Z11.52 Encounter for screening for COVID-19

== ENCOUNTER 2022-06-22 07:51 | Day surgery (SDC) | payer MEDICARE, OTHER ==
[~2022-06-22] VITALS: Ht 180.3 cm; Wt 114.8 kg
[~2022-06-22 07:51] MED LIST changes: +NS 1,000 ML IV ONE
[2022-06-22] MEDS ORDERED: fentaNYL 100 MCG/2 ML INJECTION As Ordered ONE (09:02)
[2022-06-22] MEDS ORDERED: propofoL 200 MG/20 ML VIAL As Ordered ONE (09:02)
[2022-06-22] MEDS ORDERED: LIDOCAINE 2% 100MG/5ML SDV (FOR ANES.) As Ordered ONE (09:02)
[2022-06-22 09:30] VITALS: BP 176/84
== END 2022-06-22 09:45 | disposition home or self-care (01) ==
LOC: M OPP 07:51
PROVIDERS: ATTEND Internal Medicine Gastroenterology
DX: K22.70 Barrett's esophagus without dysplasia (principal); K22.89 Other specified disease of esophagus; Z98.890 Other specified postprocedural states; I10 Essential (primary) hypertension; E78.5 Hyperlipidemia, unspecified; E11.40 Type 2 diabetes mellitus with diabetic neuropathy, unspecified; M19.90 Unspecified osteoarthritis, unspecified site; F41.9 Anxiety disorder, unspecified; F32.A Depression, unspecified; J44.9 Chronic obstructive pulmonary disease, unspecified; Z87.891 Personal history of nicotine dependence; Z79.82 Long term (current) use of aspirin; Z79.84 Long term (current) use of oral hypoglycemic drugs; Z79.899 Other long term (current) drug therapy

== ENCOUNTER → 2022-12-01 | Outpatient (CLI) | payer MEDICARE, OTHER ==
[~2022-12-01] MED LIST changes: -NS 1,000 ML IV ONE; -ROSU20TA5 PO; +ROSU20TA61 PO
== END ==
LOC: M RAD 07:31
PROVIDERS: ATTEND Internal Medicine Pulmonary Disease
DX: Z87.891 Personal history of nicotine dependence (principal)

== ENCOUNTER → 2023-05-19 | Outpatient (CLI) | payer MEDICARE, OTHER | LOC: M RAD 10:00 | PROVIDERS: ATTEND Physician Assistant | DX: I65.23 Occlusion and stenosis of bilateral carotid arteries (principal); I70.213 Atherosclerosis of native arteries of extremities with intermittent claudication, bilateral legs ==

== ENCOUNTER 2023-11-15 11:49 | Emergency (ER) | payer MEDICARE, OTHER ==
[~2023-11-15] VITALS: Ht 172.7 cm; Wt 100.0 kg
[2023-11-15 15:10] VITALS: BP 123/63; TEMP 96; O2SAT 95
== END 2023-11-15 15:15 | disposition home or self-care (01) ==
LOC: EDBD 11:49 → M ED 11:49
DX: S00.03XA Contusion of scalp, initial encounter (principal); S20.211A Contusion of right front wall of thorax, initial encounter; Y92.9 Unspecified place or not applicable; Y93.9 Activity, unspecified; Y99.9 Unspecified external cause status; W19.XXXA Unspecified fall, initial encounter; N18.30 Chronic kidney disease, stage 3 unspecified; J44.9 Chronic obstructive pulmonary disease, unspecified; F17.210 Nicotine dependence, cigarettes, uncomplicated; Z79.51 Long term (current) use of inhaled steroids; Z79.1 Long term (current) use of non-steroidal anti-inflammatories (NSAID); Z79.84 Long term (current) use of oral hypoglycemic drugs; Z79.899 Other long term (current) drug therapy

== ENCOUNTER → 2023-11-30 | Outpatient (CLI) | payer MEDICARE, OTHER | LOC: M EKG 14:25 | PROVIDERS: ATTEND Internal Medicine | DX: R55 Syncope and collapse (principal); W19.XXXA Unspecified fall, initial encounter ==

== ENCOUNTER → 2024-01-08 | Outpatient (CLI) | payer MEDICARE, OTHER | LOC: M RAD 15:23 | PROVIDERS: ATTEND Internal Medicine Pulmonary Disease | DX: F17.210 Nicotine dependence, cigarettes, uncomplicated (principal); Z12.2 Encounter for screening for malignant neoplasm of respiratory organs; J43.2 Centrilobular emphysema; I70.0 Atherosclerosis of aorta; J98.11 Atelectasis; J98.4 Other disorders of lung ==

== ENCOUNTER → 2024-03-08 | Outpatient (CLI) | payer MEDICARE, OTHER ==
[~2024-03-08] MED LIST changes: +GABA-1490 PO; -GABA600T4 PO; +GASTROGRAFIN SOLUTION 30ML ONE; +ISOVUE-370 76% 100ML VIAL ONE
== END ==
LOC: M PLAIMG 12:36
PROVIDERS: ATTEND Internal Medicine
DX: K76.9 Liver disease, unspecified (principal); Z90.49 Acquired absence of other specified parts of digestive tract; Q60.3 Renal hypoplasia, unilateral
CPT/HCPCS: 74170; Q9963; Q9967

== ENCOUNTER → 2025-01-06 | Outpatient (REF) | payer MEDICARE, OTHER ==
[~2025-01-06] MED LIST changes: -ADV250INH INH; +ADVA1AER9 INH; +GABA-1172 PO; -GABA-282 PO; -GASTROGRAFIN SOLUTION 30ML ONE; -ISOVUE-370 76% 100ML VIAL ONE; -ROSU20TA61 PO; +ROSU20TA86 PO
== END ==
LOC: M LAB REF 12:32
PROVIDERS: ATTEND Nurse Practitioner Adult Health
DX: J44.1 Chronic obstructive pulmonary disease with (acute) exacerbation (principal)

== ENCOUNTER → 2025-01-21 | Outpatient (CLI) | payer MEDICARE, OTHER | LOC: M RAD 12:43 | PROVIDERS: ATTEND Internal Medicine Pulmonary Disease | DX: J43.9 Emphysema, unspecified (principal); R91.1 Solitary pulmonary nodule; J84.10 Pulmonary fibrosis, unspecified; F17.210 Nicotine dependence, cigarettes, uncomplicated ==

== ENCOUNTER → 2025-02-07 | Outpatient (CLI) | payer OTHER ==
[2025-02-07 13:28] LABS: ALT/SGPT 92 U/L (7.0-40); AST/SGOT 82 U/L (<34); CALCIUM LEVEL 9.3 MG/DL (8.3-10.6); CARBON DIOXIDE LEVEL 30 MMOL/L (20-31); CHLORIDE LEVEL 106 MMOL/L (98-107); CHOLESTEROL LEVEL 127 MG/DL (<200); CHOLESTEROL RISK RATIO 1.97 (<5); CREATININE FOR GFR 0.88 MG/DL (0.70-1.30); GLOMERULAR FILTRATION RATE > 90.0 (>49); LDL CHOLESTEROL 32.6 MG/DL (<100); NON-HDL-C 62.6 MG/DL; POTASSIUM SERUM 5.0 MMOL/L (3.5-5.1); SODIUM LEVEL 144 MMOL/L (136-145); TRIGLYCERIDES LEVEL 150 MG/DL (<150)
== END ==
LOC: M PLALAB 09:38
PROVIDERS: ATTEND Registered Nurse
DX: E78.2 Mixed hyperlipidemia (principal)

== ENCOUNTER 2025-03-12 11:44 | Emergency (ER) | payer OTHER, MEDICARE ==
[~2025-03-12] VITALS: Ht 175.3 cm; Wt 86.1 kg
[~2025-03-12 11:44] MED LIST changes: -EZET10TA21 PO; +EZET10TA57 PO
[2025-03-12 13:08] LABS: BASO # 0.1 10^3/uL (0.0-0.2); BASO % 0.7 % (0.0-1.0); EOS # 0.5 10^3/uL (0.0-0.5); EOS % 5.8 % (0.0-3.0); LYMPH # 1.8 10^3/uL (1.5-5.0); LYMPH % 20.4 % (24.0-44.0); MONO # 0.8 10^3/uL (0.0-0.8); MONO % 8.9 % (2.0-8.0); NEUTROPHILS # 5.6 10^3/uL (1.5-8.5); NEUTROPHILS % 64.0 % (36.0-66.0); PLATELET COUNT, AUTOMATED 283 10^3/uL (150-450)
[2025-03-12] MEDS ORDERED: ISOVUE-370 76% 100 ML VIAL As Ordered ONE (13:13)
[2025-03-12 13:17] LABS: KETONE, URINE AUTO RFX NEGATIVE (NEGATIVE); LEUKOCYTE ESTERASE UR AUTO RFX NEGATIVE (NEGATIVE); NITRITE, URINE AUTO RFX NEGATIVE (NEGATIVE); RBC, URINE AUTO RFX 0 /HPF (0-3); SQUAM EPITHELIAL CELL UR AURFX 0 /HPF (0-6); WBC, URINE AUTO RFX 0 /HPF (0-3)
[2025-03-12 13:43] LABS: ALT/SGPT 47 U/L (7.0-40); AST/SGOT 32 U/L (<34); CALCIUM LEVEL 8.9 MG/DL (8.3-10.6); CARBON DIOXIDE LEVEL 29 MMOL/L (20-31); CHLORIDE LEVEL 104 MMOL/L (98-107); CK-MB VALUE MASS 5.6 NG/ML (<3.6); CPK CREATINE PHOSPHOKINASE 179 U/L (46-171); CREATININE FOR GFR 0.87 MG/DL (0.70-1.30); GLOMERULAR FILTRATION RATE > 90.0 (>49); MB/CK RELATIVE INDEX 3.12 (< OR =4); POTASSIUM SERUM 4.6 MMOL/L (3.5-5.1); SODIUM LEVEL 141 MMOL/L (136-145)
[2025-03-12 14:36] LABS: CK-MB VALUE MASS 4.0 NG/ML (<3.6)
[2025-03-12 14:38] LABS: CPK CREATINE PHOSPHOKINASE 153.0 U/L (46-171); MB/CK RELATIVE INDEX 2.61 (< OR =4)
[2025-03-12 14:59] VITALS: O2SAT 93
[2025-03-12 15:00] VITALS: BP 113/70
[2025-03-12 15:19] VITALS: TEMP 97.3
== END 2025-03-12 15:19 | disposition home or self-care (01) ==
LOC: M ED 14:05
DX: R53.1 Weakness (principal); G20.C Parkinsonism, unspecified; I12.9 Hypertensive chronic kidney disease with stage 1 through stage 4 chronic kidney disease, or unspecified chronic kidney disease; F41.9 Anxiety disorder, unspecified; G89.4 Chronic pain syndrome; J44.9 Chronic obstructive pulmonary disease, unspecified; K21.9 Gastro-esophageal reflux disease without esophagitis; K22.70 Barrett's esophagus without dysplasia; F17.200 Nicotine dependence, unspecified, uncomplicated; Z79.82 Long term (current) use of aspirin; Z79.899 Other long term (current) drug therapy
CPT/HCPCS: 70450; 70496; 70498; 71045; 72125; 73030; 80047; 80048; 80076; 81001; 82140; 82550; 82553; 84443; 84484; 85025; 93005; 93041; 94760; 99285; Q9967

== ENCOUNTER → 2025-03-13 | Outpatient (CLI) | payer OTHER, MEDICARE | LOC: M RAD 10:31 | PROVIDERS: ATTEND Physician Assistant Medical | DX: Z01.89 Encounter for other specified special examinations (principal) ==